=== PATIENT | female | born 1985 | race African-American/Black ===

== ENCOUNTER 2017-12-05 13:37 | Emergency (ER) | payer SELFPAY ==
[~2017-12-05] VITALS: Ht 152.4 cm; Wt 100.0 kg
[2017-12-05 14:14] VITALS: BP 139/85
[2017-12-05] MEDS ORDERED: ONDANSETRON HCL 4MG/2ML VIAL IV STA (17:56)
[2017-12-05] MEDS ORDERED: SODIUM CHLORIDE 0.9% 1,000 ML IV ONE (17:56)
[2017-12-05 18:07] LABS: CLARITY URINE CLEAR (CLEAR); COLOR URINE YELLOW (YELLOW); KETONES URINE TRACE (NEGATIVE); LEUKOCYTE ESTERASE URINE NEGATIVE (NEGATIVE); NITRITE URINE NEGATIVE (NEGATIVE); OCCULT BLOOD URINE NEGATIVE (NEGATIVE); PROTEIN URINE NEGATIVE (NEGATIVE); SPECIFIC GRAVITY URINE 1.032 (1.005-1.030); UROBILINOGEN URINE 0.2 E.U./dL (0.2-1.0)
[2017-12-05 18:19] LABS: *AMPHETAMINES SCREEN URINE NEGATIVE (NEGATIVE); *BARBITURATES SCREEN URINE NEGATIVE (NEGATIVE); *BENZODIAZEPINES SCREEN URINE NEGATIVE (NEGATIVE); *COCAINE SCREEN URINE NEGATIVE (NEGATIVE); METHADONE URINE SCREEN NEGATIVE (NEGATIVE); OPIATES URINE SCREEN NEGATIVE (NEGATIVE); PHENCYCLIDINE URINE SCREEN NEGATIVE (NEGATIVE)
[2017-12-05 18:22] LABS: CANNABINOID URINE SCREEN PRESUMTIVE POSITIVE (NEGATIVE)
== END 2017-12-05 18:17 | disposition left against medical advice (07) ==
LOC: ER 13:37
DX: R11.10 Vomiting, unspecified (principal); Z53.21 Procedure and treatment not carried out due to patient leaving prior to being seen by health care provider; Z79.899 Other long term (current) drug therapy
CPT/HCPCS: 80305; 81003; 81025; J7030; Z7610

== ENCOUNTER 2018-04-18 23:51 | Emergency (ER) | payer MEDICAID ==
[~2018-04-18] VITALS: Ht 152.4 cm; Wt 100.0 kg
[2018-04-19] MEDS ORDERED: HYDROCODONE/ACETAMINOPHEN 5/325MG TABLET PO ONE (03:15)
[2018-04-19 04:20] VITALS: BP 135/57
== END 2018-04-19 04:28 | disposition home or self-care (01) ==
LOC: ER 23:51
DX: K04.7 Periapical abscess without sinus (principal); F17.200 Nicotine dependence, unspecified, uncomplicated
CPT/HCPCS: 99283

== ENCOUNTER 2021-10-11 17:57 | Emergency (ER) | payer MEDICAID ==
[~2021-10-11] VITALS: Ht 152.4 cm; Wt 127.0 kg
[2021-10-11] MEDS ORDERED: DEXAMETHASONE 4MG TABLET PO ONE (19:00)
[2021-10-11 20:30] VITALS: BP 145/75
== END 2021-10-11 20:43 | disposition home or self-care (01) ==
LOC: ER 17:57
DX: R05.9 Cough, unspecified (principal); Z20.822 Contact with and (suspected) exposure to COVID-19; Z98.890 Other specified postprocedural states
CPT/HCPCS: 87426; 87804; 99283; J8540

== ENCOUNTER 2021-10-14 17:06 | Emergency (ER) | payer MEDICAID ==
[~2021-10-14] VITALS: Ht 152.4 cm; Wt 112.0 kg
[2021-10-14] MEDS ORDERED: BENZ-16 MT (19:55)
[2021-10-14 20:00] VITALS: BP 138/89
== END 2021-10-14 20:09 | disposition home or self-care (01) ==
LOC: ER 17:06
DX: R07.89 Other chest pain (principal); Z98.890 Other specified postprocedural states
CPT/HCPCS: 71045; 93005; 99283

== ENCOUNTER 2022-05-19 21:13 | Emergency (ER) | payer MEDICAID ==
[~2022-05-19] VITALS: Ht 152.4 cm; Wt 111.0 kg
[~2022-05-19 21:13] MED LIST: BENZ-16 MT
[2022-05-20] MEDS ORDERED: IBUPROFEN 600MG TABLET PO ONE (02:30)
[2022-05-20 02:34] VITALS: BP 153/87
== END 2022-05-20 02:42 | disposition home or self-care (01) ==
LOC: ER 21:13
DX: Z20.822 Contact with and (suspected) exposure to COVID-19 (principal); M79.18 Myalgia, other site; R09.81 Nasal congestion; R03.0 Elevated blood-pressure reading, without diagnosis of hypertension
CPT/HCPCS: 87426; 99283